=== PATIENT | male | born 1995 | race Caucasian/White ===

== ENCOUNTER 2016-11-04 11:00 | Emergency (ER) | payer BC ==
[2016-11-04 11:18] VITALS: BP 111/66
--- NOTE | 2016-11-04 13:07 | UC ---
Allergic Reaction HPI - HPI Summary HPI Summary: patient has hives all over his back, groin and legs, thinks it is related to new soap. - History of Current Complaint Chief Complaint: UCSkin Stated Complaint: SKIN COMPLAINT Time Seen by Provider: 11/04/16 12:52 Hx Obtained From: Patient Onset/Duration: Sudden Onset, Lasting Days Severity Initially: Moderate Severity Currently: Moderate Pain Intensity: 6 Pain Scale Used: 0-10 Numeric Location: Diffuse Character: Swelling, Pruritus, Hives Aggrevating Factor(s): Heat Alleviating Factor(s): Nothing Associated Signs And Symptoms: Positive: Rash - Related Hx Possible Reaction To: Other: - soap - Allergies/Home Medications Allergies/Adverse Reactions: Allergies Allergy/AdvReac Type Severity Reaction Status Date / Time Ibuprofen Allergy Unknown Verified 11/04/16 11:17 Reaction Details Home Medications: Home Medications diPHENhydraMINE PO* [Benadryl PO*] 50 mg PO Q6H PRN 11/04/16 [History Confirmed 11/04/16] PMH/Surg Hx/FS Hx/Imm Hx Previously Healthy: Yes Endocrine History Of: Reports: Thyroid Disease - hypo Cardiovascular History Of: Denies: Cardiac Disorders Respiratory History Of: Reports: Asthma - exercise induced - Surgical History Surgical History: None - Family History Known Family History: Negative: Hypertension, Diabetes - Social History Alcohol Use: Weekly Substance Use Type: None Smoking Status (MU): Never Smoked Tobacco Review of Systems Constitutional: Negative Skin: Rash Eyes: Negative ENT: Negative Respiratory: Negative Cardiovascular: Negative Gastrointestinal: Negative Genitourinary: Negative Motor: Negative Neurovascular: Negative Musculoskeletal: Negative Neurological: Negative Psychological: Negative All Other Systems Reviewed And Are Negative: Yes Physical Exam Triage Information Reviewed: Yes Appearance: Well-Appearing, Well-Nourished, Pain Distress Vital Signs: Initial Vital Signs Temp 98.4 F 11/04/16 11:13 Pulse 72 11/04/16 11:13 Resp 16 11/04/16 11:13 BP 111/66 11/04/16 11:13 Pulse Ox 98 11/04/16 11:13 Vital Signs Reviewed: Yes Eye Exam: Normal Eyes: Positive: Conjunctiva Clear ENT Exam: Normal ENT: Positive: Normal ENT inspection, Pharynx normal, TMs normal Dental Exam: Normal Neck exam: Normal Neck: Positive: Supple, Nontender, No Lymphadenopathy Respiratory Exam: Normal Respiratory: Positive: Chest non-tender, Lungs clear, Normal breath sounds Cardiovascular Exam: Normal Cardiovascular: Positive: RRR, No Murmur, Pulses Normal Abdominal Exam: Normal Abdomen Description: Positive: Nontender, No Organomegaly, Soft Bowel Sounds: Positive: Present Musculoskeletal Exam: Normal Musculoskeletal: Positive: Strength Intact, ROM Intact, No Edema Neurological Exam: Normal Neurological: Positive: Alert, Muscle Tone Normal Skin: Positive: rashes - large confluent hives on back groin and legs Allergic Reaction Course/Dx - Course Course Of Treatment: hx obtained, exam performed, medication prescribed. recommended different hypoallergernic soaps to try. educated on allergy medications - Differential Dx/Diagnosis Differential Diagnosis/HQI/PQRI: Airway Obstruction, Local Allergic Reaction Provider Diagnoses: urticaria. pruritis Discharge - Discharge Plan Condition: Stable Disposition: HOME Prescriptions: Famotidine TAB* [Pepcid TAB*] 20 mg PO DAILY #10 tab predniSONE TAB* [Deltasone TAB*] 20 mg PO DAILY #18 tab Patient Education Materials: Urticaria (ED) Additional Instructions: take the medication as prescribed. Stop using the suspected soap and toothpaste. report to ER if you develop and shortness of breath, swelling of the throat or face.
== END 2016-11-04 13:13 | disposition home or self-care (01) ==
LOC: UCCORT 11:00
DX: L50.9 Urticaria, unspecified (principal); Z88.6 Allergy status to analgesic agent
CPT/HCPCS: 99212; G0463

== ENCOUNTER 2016-12-10 13:51 | Emergency (ER) | payer BC ==
[2016-12-10] MEDS ORDERED: methylPREDNISolone SOD SUCC* 125 MG 2 ML VIAL IM ONE (15:10)
--- NOTE | 2016-12-10 15:10 | UC ---
Respiratory Complaint HPI - History of Current Complaint Chief Complaint: UCRespiratory Stated Complaint: ST/WHEEZING Time Seen by Provider: 12/10/16 15:01 Hx Obtained From: Patient Onset/Duration: Gradual Onset, Lasting Days - 10, Still Present Timing: Constant Severity Initially: Mild Severity Currently: Moderate Character: Cough: Productive - mucus Associated Signs And Symptoms: Positive: Dyspnea, Fever - earlier in the week, Chills, Wheezing, URI, Nasal Congestion, Hoarseness Related History: Seasonal Allergies - Risk Factors Pulmonary Embolism Risk Factors: Negative Cardiac Risk Factors: Negative Pseudomonas Risk Factors: Negative - Allergies/Home Medications Allergies/Adverse Reactions: Allergies Allergy/AdvReac Type Severity Reaction Status Date / Time Ibuprofen Allergy Unknown Verified 12/10/16 14:50 Reaction Details TOOTH PASTE , UNKNOWN NAME Allergy Severe Hives Uncoded 12/10/16 14:52 ENVIROMENTAL Allergy Intermediate WHEEZING, Uncoded 12/10/16 14:52 RASH Home Medications: Home Medications Dextromethorphan-Phenylephrine [Day Time Multi-Symptom Co 10-5-325 mg] 1 cap PO PRN 12/10/16 [History] PMH/Surg Hx/FS Hx/Imm Hx Endocrine History Of: Reports: Thyroid Disease - hypo Cardiovascular History Of: Denies: Cardiac Disorders Respiratory History Of: Reports: Asthma - exercise induced - Surgical History Surgical History: None - Family History Known Family History: Negative: Cardiac Disease, Hypertension, Diabetes - Social History Occupation: Student Lives: Alone Alcohol Use: Occasionally Substance Use Type: None Smoking Status (MU): Never Smoked Tobacco Have You Smoked in the Last Year: No - Immunization History Most Recent Influenza Vaccination: NOT SURE Review of Systems Constitutional: Fever, Chills ENT: Sore Throat Respiratory: Shortness Of Breath, Cough All Other Systems Reviewed And Are Negative: Yes Physical Exam Triage Information Reviewed: Yes Appearance: No Pain Distress, Well-Nourished, Ill-Appearing Vital Signs: Initial Vital Signs Temp 98.7 F 12/10/16 14:55 Pulse 74 12/10/16 14:55 Resp 16 12/10/16 14:55 BP 119/81 12/10/16 14:55 Pulse Ox 97 12/10/16 14:55 Vital Signs Reviewed: Yes Eyes: Positive: Conjunctiva Clear ENT: Positive: Pharynx normal, TMs normal Neck exam: Normal Respiratory: Positive: Lungs clear, Wheezing - expiratory wheeze with cough Cardiovascular Exam: Normal Musculoskeletal Exam: Normal Neurological Exam: Normal Psychological Exam: Normal Skin Exam: Normal UC Diagnostic Evaluation - Laboratory O2 Sat by Pulse Oximetry: 97 Respiratory Course/Dx - Differential Dx/Diagnosis Differential Diagnosis/HQI/PQRI: Asthma, Lower Resp Infection, Sinusitis Provider Diagnoses: URI. Asthma with acute exacerbation. Discharge - Discharge Plan Condition: Stable Disposition: HOME Prescriptions: predniSONE TAB* [Deltasone TAB*] 20 mg PO DAILY #18 tab Patient Education Materials: Upper Respiratory Infection (ED), Prednisone (By mouth) Additional Instructions: Advair is a maintenence medication. It is to be used for prevention of wheezing. Albuterol is for rescue treatment.
[2016-12-10] MEDS ORDERED: Albuterol 2.5 MG/3 ML NEB.SOL* (0.083%) INH ONE (15:12)
[2016-12-10 15:49] VITALS: BP 142/67
== END 2016-12-10 15:52 | disposition home or self-care (01) ==
LOC: UCCORT 13:51
DX: J06.9 Acute upper respiratory infection, unspecified (principal); J45.901 Unspecified asthma with (acute) exacerbation; R03.0 Elevated blood-pressure reading, without diagnosis of hypertension; Z88.6 Allergy status to analgesic agent
CPT/HCPCS: 96372; 99212; G0463; J2930

== ENCOUNTER 2017-02-18 16:14 | Emergency (ER) | payer BC ==
[2017-02-18 17:17] VITALS: BP 161/56
[2017-02-18] MEDS ORDERED: Albuterol/Ipratropium NEB.SOL* Albuterol 2.5 MG/Ipratropium 0.5 MG 3 ML INH ONE (17:18)
--- NOTE | 2017-02-18 17:56 | UC ---
Respiratory Complaint HPI - HPI Summary HPI Summary: pt presents with c/o of SOB, wheezing nasal congestion and exacerbation of asthma. - History of Current Complaint Chief Complaint: UCRespiratory Stated Complaint: ASTHMA,DIFFICULTY BREATHING Time Seen by Provider: 02/18/17 17:45 Hx Obtained From: Patient Onset/Duration: Gradual Onset, Lasting Days Timing: Constant Severity Initially: Mild Severity Currently: Moderate Character: Cough: Nonproductive Aggravating Factors: Allergens, Exertion, Deep Breaths, Recumbent Position Alleviating Factors: Nothing - pt has been using his rescue inhlaer with no improvement Associated Signs And Symptoms: Positive: Wheezing, URI Related History: Seasonal Allergies - Allergies/Home Medications Allergies/Adverse Reactions: Allergies Allergy/AdvReac Type Severity Reaction Status Date / Time Ibuprofen Allergy Unknown Verified 02/18/17 17:08 Reaction Details TOOTH PASTE , UNKNOWN NAME Allergy Severe Hives Uncoded 02/18/17 17:08 ENVIROMENTAL Allergy Intermediate WHEEZING, Uncoded 02/18/17 17:08 RASH Home Medications: Home Medications Allergy Pill 1 tab PO DAILY 02/18/17 [History Confirmed 02/18/17] PMH/Surg Hx/FS Hx/Imm Hx Previously Healthy: Yes Endocrine History Of: Reports: Thyroid Disease - hypo Cardiovascular History Of: Denies: Cardiac Disorders Respiratory History Of: Reports: Asthma - Surgical History Surgical History: None - Family History Known Family History: Negative: Cardiac Disease, Hypertension, Diabetes - Social History Alcohol Use: Occasionally Substance Use Type: None Smoking Status (MU): Never Smoked Tobacco Have You Smoked in the Last Year: No - Immunization History Most Recent Influenza Vaccination: NOT SURE Review of Systems Constitutional: Negative Skin: Negative Eyes: Negative ENT: Other - nasal congestion Respiratory: Shortness Of Breath, Cough, Other - wheezing Cardiovascular: Negative Gastrointestinal: Negative Genitourinary: Negative Motor: Negative Neurovascular: Negative Musculoskeletal: Negative Neurological: Negative Psychological: Negative All Other Systems Reviewed And Are Negative: Yes Physical Exam Triage Information Reviewed: Yes Appearance: Well-Appearing Vital Signs: Initial Vital Signs Temp 98.8 F 02/18/17 17:10 Pulse 75 02/18/17 17:10 Resp 22 02/18/17 17:10 BP 161/56 02/18/17 17:10 Pulse Ox 94 02/18/17 17:10 Vital Signs Reviewed: Yes Eye Exam: Normal ENT Exam: Other ENT: Positive: Nasal congestion, TM bulging - bilateral Neck exam: Normal Respiratory Exam: Other Respiratory: Positive: Decreased breath sounds - bases, Wheezing Cardiovascular Exam: Normal Musculoskeletal Exam: Normal Neurological Exam: Normal Psychological Exam: Normal Skin Exam: Normal UC Diagnostic Evaluation - Laboratory O2 Sat by Pulse Oximetry: 94 Respiratory Course/Dx - Differential Dx/Diagnosis Differential Diagnosis/HQI/PQRI: Asthma, Exacerbation Of COPD Provider Diagnoses: acute exacerbation of astham. seasonal allergies Discharge - Discharge Plan Condition: Stable Disposition: HOME Prescriptions: Montelukast Sodium TAB* [Singulair TAB*] 10 mg PO BEDTIME #30 tab predniSONE TAB* [Deltasone TAB*] 30 mg PO DAILY #12 tab Patient Education Materials: Asthma (ED), Allergies (ED) Referrals: [facility] [Outside] Non Staff,Doctor [Primary Care Provider] - If Needed Additional Instructions: Please follow up with your PCP or return to clinic as needed. Please take oral OTC benadryl as needed.
== END 2017-02-18 18:08 | disposition home or self-care (01) ==
LOC: UCCORT 16:14
DX: J45.901 Unspecified asthma with (acute) exacerbation (principal); E03.9 Hypothyroidism, unspecified; Z88.6 Allergy status to analgesic agent; Z91.048 Other nonmedicinal substance allergy status
CPT/HCPCS: 99212; A9270-GY; G0463

== ENCOUNTER 2017-02-25 20:59 | Emergency (ER) | payer BC ==
[2017-02-25 21:26] VITALS: BP 137/82
[2017-02-25] MEDS ORDERED: predniSONE TAB* 20 MG PO ONE (22:10)
--- NOTE | 2017-02-25 22:10 | UC ---
Asthma HPI - History of Current Complaint Chief Complaint: UCRespiratory Stated Complaint: ASTHMA Time Seen by Provider: 02/25/17 21:59 Hx Obtained From: Patient Onset/Duration: Gradual Onset, Lasting Weeks - 1 1/2 weeks. Better with prednisone, Worse Since - today since he ran out of prednisone. Timing: Constant Initial Severity: Moderate Location/Character: Cough (Nonproductive) Alleviating: Steriods, Inhalers/Nebulizers Associated Signs and Symptoms: Positive: Shortness of Breath - Risk Factors Status Asthmaticus Risk Factors: Recent Steroids - Allergy/Home Medications Allergies/Adverse Reactions: Allergies Allergy/AdvReac Type Severity Reaction Status Date / Time Ibuprofen Allergy Unknown Verified 02/25/17 21:26 Reaction Details TOOTH PASTE , UNKNOWN NAME Allergy Severe Hives Uncoded 02/25/17 21:26 ENVIROMENTAL Allergy Intermediate WHEEZING, Uncoded 02/25/17 21:26 RASH PMH/Surg Hx/FS Hx/Imm Hx Endocrine History Of: Reports: Thyroid Disease - hypo Cardiovascular History Of: Denies: Cardiac Disorders Respiratory History Of: Reports: Asthma - Surgical History Surgical History: None - Family History Known Family History: Negative: Cardiac Disease, Hypertension, Diabetes - Social History Occupation: Student Lives: Alone Alcohol Use: Occasionally Substance Use Type: None Smoking Status (MU): Never Smoked Tobacco Have You Smoked in the Last Year: No - Immunization History Most Recent Influenza Vaccination: NOT SURE Review of Systems Respiratory: Shortness Of Breath, Cough All Other Systems Reviewed And Are Negative: Yes Physical Exam Triage Information Reviewed: Yes Appearance: Well-Appearing, No Pain Distress, Well-Nourished Vital Signs: Initial Vital Signs Temp 98.4 F 02/25/17 21:18 Pulse 69 02/25/17 21:18 Resp 20 02/25/17 21:18 BP 137/82 02/25/17 21:18 Pulse Ox 96 02/25/17 21:18 Vital Signs Reviewed: Yes Eyes: Positive: Conjunctiva Clear ENT: Positive: Pharynx normal, Nasal congestion, TMs normal Neck exam: Normal Respiratory: Positive: Wheezing - Expiratory, worse with coughing. Cardiovascular Exam: Normal Musculoskeletal Exam: Normal Neurological Exam: Normal Psychological Exam: Normal Skin Exam: Normal Asthma Course/Dx - Differential Dx/Diagnosis Differential Diagnosis/HQI/PQRI: Acute Asthma, COPD Excerbation, Reactive Airway Disease Provider Diagnoses: Asthma with acute exacerbation. Discharge - Discharge Plan Condition: Stable Disposition: HOME Prescriptions: predniSONE TAB* [Deltasone TAB*] 20 mg PO DAILY #18 tab Patient Education Materials: Wheezing (ED), Prednisone (By mouth)
== END 2017-02-25 22:33 | disposition home or self-care (01) ==
LOC: UCCORT 20:59
DX: J45.901 Unspecified asthma with (acute) exacerbation (principal); E03.9 Hypothyroidism, unspecified; Z88.6 Allergy status to analgesic agent
CPT/HCPCS: 99212; G0463; J7512